=== PATIENT | male | born 1975 | race African-American/Black ===

== ENCOUNTER 2021-02-01 21:53 | Emergency (ER) | payer MEDICAID, OTHER ==
[~2021-02-01] VITALS: Ht 180.3 cm; Wt 128.8 kg
[2021-02-01] MEDS ORDERED: IBUPROFEN 800 MG TAB PO ONE (23:45)
[2021-02-02 00:37] VITALS: BP 118/71
== END 2021-02-02 03:54 | disposition home or self-care (01) ==
LOC: ER 21:59
DX: S62.335A Displaced fracture of neck of fourth metacarpal bone, left hand, initial encounter for closed fracture (principal); S16.1XXA Strain of muscle, fascia and tendon at neck level, initial encounter; S46.912A Strain of unspecified muscle, fascia and tendon at shoulder and upper arm level, left arm, initial encounter; V49.9XXA Car occupant (driver) (passenger) injured in unspecified traffic accident, initial encounter; Y93.89 Activity, other specified; Y92.89 Other specified places as the place of occurrence of the external cause; Y99.8 Other external cause status
CPT/HCPCS: 29125; 70450; 72125; 73030; 73110; 73130